=== PATIENT | female | born 1955 | race Caucasian/White ===

== ENCOUNTER 2020-05-21 15:50 | Emergency (ER) | payer BC ==
--- NOTE | 2020-05-21 16:52 | EDM.PDOC ---
ED HPI GENERAL MEDICAL PROBLEM - General Chief Complaint: ENT Problem Stated Complaint: NOSE INJURY Time Seen by Provider: 05/21/20 16:05 Source of Information: Reports: Patient, RN Notes Reviewed History Limitations: Reports: No Limitations - History of Present Illness INITIAL COMMENTS - FREE TEXT/NARRATIVE: Patient is a 64 year old female presenting to the ER with c/o facial swelling and pain, dizziness, and difficulty focusing. Last evening, she was trying to untie her boot. She reached for the wall to balance herself, missed the wall, and fell on her face. She put her left hand in front of her face as she fell, causing the bridge of her nose to hit her ring when she fell. She had an extensive bilateral nosebleed which took about 45 minutes to stop bleeding. She is not certain if she lost consciousness, but states that if she did it would have been for very brief moment. Today, the swelling has worsened and she has developed a headache. She complains of intermittent dizziness and "difficulty focusing ". Denies blurry vision, nausea, or vomiting. Treatments REGISTERED NURSE STEP DOWN: Reports: Other (see below) Other Treatments REGISTERED NURSE STEP DOWN: none;used ice prn Nose Pain Score (Numeric/FACES): 7 - Related Data Allergies Allergy/AdvReac Type Severity Reaction Status Date / Time morphine Allergy Severe Hives Verified 05/21/20 16:11 peanut Allergy Severe Anaphylactic Verified 05/21/20 16:11 Shock Penicillins Allergy Severe Hives Verified 05/21/20 16:11 shellfish derived Allergy Severe Anaphylactic Verified 05/21/20 16:11 Shock Home Meds: Home Meds . [No Known Home Meds] 05/21/20 [History] Past Medical History - Past Surgical History HEENT Surgical History: Reports: Tonsillectomy GI Surgical History: Reports: Cholecystectomy Female Surgical History: Reports: Hysterectomy Social & Family History - Tobacco Use Tobacco Use Status *Q: Never Tobacco User - Caffeine Use Caffeine Use: Reports: Coffee - Recreational Drug Use Recreational Drug Use: No ED ROS ENT - Review of Systems Review Of Systems: See Below Constitutional: Reports: No Symptoms HEENT: Reports: Nose Pain, Other (Facial pain above the right eye to bilateral medial cheekbones.) Respiratory: Reports: No Symptoms Cardiovascular: Reports: No Symptoms Endocrine: Reports: No Symptoms GI/Abdominal: Reports: No Symptoms, Mucous in Stool Musculoskeletal: Reports: No Symptoms Skin: Reports: No Symptoms Neurological: Reports: Dizziness, Headache. Denies: Confusion Psychiatric: Reports: No Symptoms Hematologic/Lymphatic: Reports: No Symptoms Immunologic: Reports: No Symptoms ED EXAM, ENT - Physical Exam Exam: See Below General Appearance: Alert, WD/WN, No Apparent Distress Nose: Nasal Swelling, Nasal Tenderness, Nasal Ecchymosis, Dried Blood. No: Nasal Deformity, Septal Deformity, Septal Hematoma, Active Bleeding Head: Normocephalic, Facial Swelling, Facial Tenderness, Sinus Tenderness (maxillary). No: Facial Abrasions, Facial Ecchymosis, Facial Lacerations Neck: Normal Inspection, Supple, Non-Tender, Full Range of Motion Respiratory/Chest: No Respiratory Distress, Lungs Clear, Normal Breath Sounds, No Accessory Muscle Use, Chest Non-Tender Cardiovascular: Normal Peripheral Pulses, Regular Rate, Rhythm, No Edema, No Gallop, No JVD, No Murmur, No Rub GI/Abdominal: Normal Bowel Sounds, Soft, Non-Tender, No Organomegaly, No Distention, No Abnormal Bruit, No Mass Neurological: Alert, Oriented, CN II-XII Intact, Normal Cognition, Normal Gait, Normal Reflexes, No Motor/Sensory Deficits Psychiatric: Normal Affect, Normal Mood Skin: Warm, Dry, Intact, Normal Color, No Rash Course - Vital Signs Last Recorded V/S: Last Vital Signs Temp 97.9 F 05/21/20 16:14 Pulse 81 05/21/20 16:14 Resp 20 05/21/20 16:14 BP 140/85 05/21/20 16:14 Pulse Ox 97 05/21/20 16:14 - Re-Assessments/Exams Free Text/Narrative Re-Assessment/Exam: Patient is a 64-year-old female presenting to the emergency department with complaints of facial swelling, facial pain, headache, and occasional dizziness after falling on her face last evening. She initially had substantial nosebleed, however that resolved 45 minutes later. On exam, she is significantly tender across her nasal bridge and does have a moderate amount of swelling. She is tender to palpation across her maxillary sinuses as well as to the forehead above her right eye. Ordered a head CT without contrast as well as a maxillofacial CT. 05/21/20 17:27 CT shows no acute intracranial abnormalities. Maxillofacial CT shows a possible nondisplaced nasal bone fracture please correlate if patient is symptomatic in this region. She has degenerative changes within both temporomandibular joints. There is nothing else acute visualized on CT. She is exquisitely tender over the area of concern. Patient has no septal hematoma. Dr. Camp also assessed and confirmed this. I have sent a referral to Dr. Jose Schmid ENT at [facility]. Recommend follow-up with him. Recommend routine icing as w ell as Tylenol and ibuprofen as needed. Discharge instructions as documented. Departure - Departure Time of Disposition: 17:30 Disposition: Home, Self-Care 01 Condition: Good Clinical Impression: Nasal bones, closed fracture Qualifiers: Encounter type: initial encounter Qualified Code(s): S02.2XXA - Fracture of nasal bones, initial encounter for closed fracture - Discharge Information *PRESCRIPTION DRUG MONITORING PROGRAM REVIEWED*: No *COPY OF PRESCRIPTION DRUG MONITORING REPORT IN PATIENT JEFF: No Instructions: Nasal Fracture, [id number] Referrals: Hair Ramos MD [Primary Care Provider] - Jose Schmid MD [Ordering Only Provider] - Forms: ED Department Discharge Additional Instructions: You were seen in the emergency department today for facial pain and swelling as well as headache and occasional dizziness after falling on your face yesterday. Head CT and a maxillofacial CT was completed. Your head CT was found to be normal. There is no intracranial bleeding. You do have a nondisplaced nasal fracture which correlates to the area where your ring hit your nose. A referral has been sent to Dr. Jose Schmid ENT at [facility] in [place]. Call his office Saturday to set up an appointment. Recommend intermittent icing of your nose for the next few days. Tylenol or ibuprofen may be used for discomfort. Return to ER with any new or worsening symptoms of concern. Sepsis Event Note (ED) - Evaluation Sepsis Screening Result: No Definite Risk - Focused Exam Vital Signs: Vital Signs Temp Pulse Resp BP Pulse Ox 05/21/20 16:14 97.9 F 81 20 140/85 97
--- NOTE | 2020-05-21 17:19 | CT ---
CT facial bones Technique: Multiple axial sections through the facial bones were obtained. Intravenous contrast was not utilized. Findings: Paranasal sinuses and mastoid sinuses are clear. There is mild joint space narrowing compatible with degenerative change within both temporomandibular joints. Right and left globes are symmetric. No retrobulbar abnormality is appreciated. Several lucent lines are noted within the nasal bone which are nondisplaced. Difficult to exclude a nondisplaced nasal bone fracture. No additional fracture is appreciated. Impression: 1. Possible nondisplaced nasal bone fracture. Please correlate if patient is symptomatic to this region. 2. Degenerative change within both temporomandibular joints. 3. Nothing acute is otherwise appreciated on CT study of the facial bones. Diagnostic code #3
--- NOTE | 2020-05-21 17:19 | CT ---
Head CT Technique: Multiple axial sections through the brain were obtained. Intravenous contrast was not utilized. Comparison: No prior intracranial imaging is available. Findings: Ventricles along with basal cisterns and sulci over the convexities are within normal limits for the patient's age. No abnormal parenchymal densities are seen. No evidence of intracranial hemorrhage. No midline shift or mass-effect is appreciated. Bone window settings were reviewed which show the visualized mastoid sinuses and paranasal sinuses to show nothing acute. No acute calvarial abnormality is appreciated. Impression: 1. Nothing acute is seen on noncontrast head CT exam. Diagnostic code #1
== END 2020-05-21 17:35 | disposition home or self-care (01) ==
LOC: JD.ED 15:50
DX: S02.2XXA Fracture of nasal bones, initial encounter for closed fracture (principal); Z88.5 Allergy status to narcotic agent; Z91.010 Allergy to peanuts; Z88.0 Allergy status to penicillin; Z91.013 Allergy to seafood; W22.8XXA Striking against or struck by other objects, initial encounter
CPT/HCPCS: 70450; 70450-26; 70486; 70486-26; 99283; 99283-25